=== PATIENT | female | born 1975 | race Caucasian/White ===

== ENCOUNTER 2023-12-12 21:26 | Emergency (ER) | payer OTHER, SELFPAY ==
[2023-12-12 21:39] VITALS: BP 140/101; PULSE 74; RESP 16; TEMP 36.9; O2SAT 96; BMI 33.5
--- NOTE | 2023-12-12 22:20 | CRLHL7_ITS ---
For Patients: As a result of the Century Cures Act, medical imaging exams and procedure reports are released immediately into your electronic medical record. You may view this report before your referring provider. If you have questions, please contact your health care provider. INDICATION: Left neck swelling. TECHNIQUE: CT soft tissue of the neck was acquired with 100 cc Isovue 370 IV contrast. COMPARISON: None. FINDINGS: Skull base: Moderate mucosal thickening of the maxillary sinuses. Central areas of hyperattenuation, nonspecific but may be seen the setting of fungal colonization. Pharynx/Larynx/Trachea: Epiglottis is normal. Airway is patent. Adjacent soft tissues are normal. Salivary glands: Unremarkable. Thyroid gland: Unremarkable. No significant nodules. Lymph nodes: Enlarged bilateral level 1B and 2 lymph nodes. Vessels: Unremarkable for age. Bones: Unremarkable for age. Misc: Focal subcutaneous soft tissue swelling of the left face. No mass or fluid collection. IMPRESSION: 1. Focal subcutaneous soft tissue swelling of the left face, nonspecific correlate for cellulitis. 2. Enlarged bilateral level 1B and 2 lymph nodes, nonspecific possibly reactive. Metastatic disease or lymphoproliferative disorder not excluded. 3. Moderate maxillary sinus mucosal thickening with suggestion of fungal colonization. Please note that all CT scans at this facility use dose modulation, iterative reconstruction, and/or weight-based dosing when appropriate to reduce radiation dose to as low as reasonably achievable. Dictated by Bryce Desai MD @ 12/13/2023 1:50:33 AM (Electronically Signed)
[2023-12-12 22:35] LABS: Basophils Absolute Auto 0.01 K/uL (0.00-0.30); Basophils Percent Auto 0.1 % (0.0-3.0); Eosinophils Absolute Auto 0.21 K/uL (0.00-0.50); Eosinophils Percent Auto 3.1 % (0.0-7.0); Hemoglobin* 14.3 gm/dL (12.0-16.0); Immature Granulocytes Abs Auto 0.01 K/uL (0.00-0.30); Immature Granulocytes Pct Auto 0.1 %; Lymphocytes Percent Auto 52.5 % (20-44); Mean Corpuscular HGB Conc 34 gm/dL (32-36); Mean Corpuscular Hemoglobin 29 pg (26-34); Mean Corpuscular Volume 86 fL (80-100); Monocytes Percent Auto 6.6 % (0.0-11.0); Neutrophils Percent Auto 37.6 % (42.0-72.0); Platelet Count* 458 K/uL (140-440); RDW Coefficient of Variation % 12.5 % (11.5-15.5); Red Blood Count 4.91 m/uL (4.00-5.20); White Blood Count* 6.87 K/uL (4.50-11.00)
[2023-12-12] MEDS: 0.9 % SODIUM CHLORIDE 1000 ml 1,000 ML IV (22:37)
[2023-12-12 22:44] LABS: Slide Review Reflex No
[2023-12-12 22:55] LABS: C Reactive Protein* 0.8 mg/dL (0.5-1.0)
--- NOTE | 2023-12-12 23:35 | ED.SKABFB ---
HPI - Skin/Abscess/Foreign Bdy General Date Seen: 12/12/23 <Alin Loya MD - Last Filed: 12/12/23 23:39> Chief complaint: Sore Throat <Alin Loya MD - Last Filed: 12/12/23 23:39> Stated complaint: pain in lymph nodes, swelling <Alin Loya MD - Last Filed: 12/12/23 23:39> Time Seen by Provider: 12/12/23 21:35 <Alin Loya MD - Last Filed: 12/12/23 23:39> Source: patient <Alin Loya MD - Last Filed: 12/12/23 23:39> Mode of arrival: ambulatory <Alin Loya MD - Last Filed: 12/12/23 23:39> Limitations: no limitations <Ailn Loya MD - Last Filed: 12/12/23 23:39> History of Present Illness HPI narrative: seen yesterday at [facility] urgent care and dx with strep and flu b, started on Augmentin which she has taken before in the past. today noticed swelling in her lymph node area and painful swallowing. patient denies airway compromise but is concerned about the amount of swelling in her lymph nodes. She presents with left-sided facial swelling that is worsening. No fevers no chills she was started on the Augmentin, tested positive for both strep and influenza B. Has some concerns over the fact that she has had strep now 3 times in the last few months was able to eat today although she says the is a little bit sore to swallow. Taking some Tylenol and some ibuprofen. History of petite mal seizures, reflux, anxiety, <Alin Loya MD - Last Filed: 12/12/23 23:39> Treatments prior to arrival: none <Alin Loya MD - Last Filed: 12/12/23 23:39> Related Data Home medications: Home Medications ?Medication ?Instructions ?Recorded ?Confirmed lamotrigine .ROUTE 12/12/23 omeprazole 20 mg capsule,delayed 20 mg PO DAILY 12/12/23 12/12/23 release paroxetine HCl PO 12/12/23 propranolol .ROUTE 12/12/23 Previous Rx's ?Medication ?Instructions ?Recorded amoxicillin 875 mg-potassium 1 tab PO BID #10 tabs 12/13/23 clavulanate 125 mg tablet <Alin Loya MD - Last Filed: 12/12/23 23:39> Allergies/Adverse reactions: Allergies Allergy/AdvReac Type Severity Reaction Status Date / Time morphine Allergy Verified 12/12/23 21:46 <Alin Loya MD - Last Filed: 12/12/23 23:39> Review of Systems Status of ROS: Reports: 10 or more systems reviewed and unremarkable except as noted in History and below <Alin Loya MD - Last Filed: 12/12/23 23:39> PFSH PFSH Social History: Social History Non-prescribed substance use: denies use <Alin Loya MD - Last Filed: 12/12/23 23:39> Exam Narrative: Exam Narrative: Patient is in no apparent distress she has a normal voice speaking to me normally she clearly has left-sided swelling of her face, appears to be more of the parotid gland than anything. There is a little bit of reactive lymphadenopathy on the left side the floor of her mouth is quiet, do not detect any evidence of a ranula or tooth abscess. Or oropharynx is otherwise looks good, I do not see any sign peritonsillar abscess or asymmetry noted. TMs are normal bilaterally her neck is supple her chest is good air entry bilaterally heart sounds are normal. <Alin Loya MD - Last Filed: 12/12/23 23:39> Const: Vital Signs, click to edit/add: Vital Signs - 24 hr 12/12/23 21:39 12/13/23 01:00 12/13/23 01:10 Temperature 98.4 F 98.0 F Pulse Rate [Pulse Oximeter] 74 75 Respiratory Rate 16 16 Blood Pressure [Ri ght Upper Arm] 140/101 H 135/78 Pulse Oximetry 96 98 Oxygen Delivery Mn thod Room Air Room Air <Alin Loya MD - Last Filed: 12/12/23 23:39> Vital Signs, click to edit/add: Vital Signs - 24 hr 12/12/23 21:39 12/13/23 01:00 12/13/23 01:10 Temperature 98.4 F 98.0 F Pulse Rate [Pulse Oximeter] 74 75 Respiratory Rate 16 16 Blood Pressure [Ri t Upper Arm] 140/101 H 135/78 Pulse Oximetry 96 98 Oxygen Delivery Me thod Room Air Room Air <Rafy Byrne MD - Last Filed: 12/13/23 01:25> Documenting provider has reviewed patient's vital signs: yes <Alin Loya MD - Last Filed: 12/12/23 23:39> Course Reevaluation(s) Time of Reevaluation #1: 01:23 <Rafy Byrne MD - Last Filed: 12/13/23 01:25> Reevaluation #1: Patient is requesting discharge. I personally reviewed the CT scan of the neck which does not demonstrate prominent asymmetry, or airway compromise. Mild tonsillar asymmetry with slight prominence on the left, no fluid collection seen. If there is an abscess that is subcentimeter and likely not candidate for drainage. Patient will be started on prednisone and should continue her antibiotics. <Rafy Byrne MD - Last Filed: 12/13/23 01:25> Vital Signs Vital signs: Initial Vital Signs Temperature 98.4 F 12/12/23 21:39 Temperature Source Temporal Artery Scan 12/12/23 21:39 Pulse Rate 74 12/12/23 21:39 Respiratory Rate 16 12/12/23 21:39 Blood Pressure 140/101 H 12/12/23 21:39 Blood Pressure Mean 114 H 12/12/23 21:39 Blood Pressure Position Sitting 12/12/23 21:39 Pulse Oximetry 96 12/12/23 21:39 Oxygen Delivery Method Room Air 12/12/23 21:39 Vital Signs Temperature 98.4 F 12/12/23 21:39 Pulse Rate 74 12/12/23 21:39 Respiratory Rate 16 12/12/23 21:39 Blood Pressure 140/101 H 12/12/23 21:39 Pulse Oximetry 96 12/12/23 21:39 Oxygen Delivery Method Room Air 12/12/23 21:39 Temperature 98.0 F 12/13/23 01:10 Pulse Rate 75 12/13/23 01:00 Respiratory Rate 16 12/13/23 01:00 Blood Pressure 135/78 12/13/23 01:00 Pulse Oximetry 98 12/13/23 01:00 Oxygen Delivery Method Room Air 12/13/23 01:00 <Alin Loya MD - Last Filed: 12/12/23 23:39> Initial Vital Signs Temperature 98.4 F 12/12/23 21:39 Temperature Source Temporal Artery Scan 12/12/23 21:39 Pulse Rate 74 12/12/23 21:39 Respiratory Rate 16 12/12/23 21:39 Blood Pressure 140/101 H 12/12/23 21:39 Blood Pressure Mean 114 H 12/12/23 21:39 Blood Pressure Position Sitting 12/12/23 21:39 Pulse Oximetry 96 12/12/23 21:39 Oxygen Delivery Method Room Air 12/12/23 21:39 Vital Signs Temperature 98.4 F 12/12/23 21:39 Pulse Rate 74 12/12/23 21:39 Respiratory Rate 16 12/12/23 21:39 Blood Pressure 140/101 H 12/12/23 21:39 Pulse Oximetry 96 12/12/23 21:39 Oxygen Delivery Method Room Air 12/12/23 21:39 Temperature 98.0 F 12/13/23 01:10 Pulse Rate 75 12/13/23 01:00 Respiratory Rate 16 12/13/23 01:00 Blood Pressure 135/78 12/13/23 01:00 Pulse Oximetry 98 12/13/23 01:00 Oxygen Delivery Method Room Air 12/13/23 01:00 <Rafy Byrne MD - Last Filed: 12/13/23 01:25> Medications Administered Medications: Discontinued Medications Generic Name Dose Route Start Last Admin Trade Name Freq PRN Reason Stop Dose Admin Sodium Chloride 1,000 mls @ 1,000 mls/hr 12/12/23 22:30 12/13/23 01:06 0.9 % Sodium Chloride 1000 Ml IV 12/12/23 23:29 Infused .Q1H ANIA Infusion <Alin Loya MD - Last Filed: 12/12/23 23:39> Discontinued Medications Generic Name Dose Route Start Last Admin Trade Name Freq PRN Reason Stop Dose Admin Sodium Chloride 1,000 mls @ 1,000 mls/hr 12/12/23 22:30 12/13/23 01:06 0.9 % Sodium Chloride 1000 Ml IV 12/12/23 23:29 Infused .Q1H ANIA Infusion <Rafy Byrne MD - Last Filed: 12/13/23 01:25> MDM - Skin/Abscess/Foreign Bdy MDM Narrative Medical decision making narrative: I do think this is most likely due parotid but she does have the swelling. I think it would be reasonable to a CT, along with blood test. If this all comes back normal I think she can go home and continue with her Augmentin. I would suggest follow-up with her primary care physician for her concerns of the repeated strep. <Alin Loya MD - Last Filed: 12/12/23 23:39> Medical Records Attestation: I reviewed the patient's medical records. <Alin Loya MD - Last Filed: 12/12/23 23:39> Lab Data Attestation: I reviewed the patient's lab results. <Alin Loya MD - Last Filed: 12/12/23 23:39> Labs: Lab Results 12/12/23 Range/Units 22:27 WBC 6.87 (4.50-11.00) K/uL RBC 4.91 (4.00-5.20) m/uL Hgb 14.3 (12.0-16.0) gm/dL Hct 42.0 (33.0-51.0) % MCV 86 (80-100) fL MCH 29 (26-34) pg MCHC 34 (32-36) gm/dL RDW Coeff of Alejandro 12.5 (11.5-15.5) % Plt Count 458 H (140-440) K/uL Neut % (Auto) 37.6 L (42.0-72.0) % Lymph % (Auto) 52.5 H (20-44) % Forrest % (Auto) 6.6 (0.0-11.0) % Eos % (Auto) 3.1 (0.0-7.0) % Baso % (Auto) 0.1 (0.0-3.0) % Neut # (Auto) 2.60 (1.7-7.0) K/uL Lymph # (Auto) 3.60 H (0.90-2.90) K/uL Forrest # (Auto) 0.50 (0.00-0.90) K/UL Eos # (Auto) 0.21 (0.00-0.50) K/uL Baso # (Auto) 0.01 (0.00-0.30) K/uL Abs Immat Gran (auto) 0.01 (0.00-0.30) K/uL Imm/Tot Granulo (auto) 0.1 % C-Reactive Protein 0.8 (0.5-1.0) mg/dL <Alin Loya MD - Last Filed: 12/12/23 23:39> Lab Results 12/12/23 Range/Units 22:27 WBC 6.87 (4.50-11.00) K/uL RBC 4.91 (4.00-5.20) m/uL Hgb 14.3 (12.0-16.0) gm/dL Hct 42.0 (33.0-51.0) % MCV 86 (80-100) fL MCH 29 (26-34) pg MCHC 34 (32-36) gm/dL RDW Coeff of Alejandro 12.5 (11.5-15.5) % Plt Count 458 H (140-440) K/uL Neut % (Auto) 37.6 L (42.0-72.0) % Lymph % (Auto) 52.5 H (20-44) % Forrest % (Auto) 6.6 (0.0-11.0) % Eos % (Auto) 3.1 (0.0-7.0) % Baso % (Auto) 0.1 (0.0-3.0) % Neut # (Auto) 2.60 (1.7-7.0) K/uL Lymph # (Auto) 3.60 H (0.90-2.90) K/uL Forrest # (Auto) 0.50 (0.00-0.90) K/UL Eos # (Auto) 0.21 (0.00-0.50) K/uL Baso # (Auto) 0.01 (0.00-0.30) K/uL Abs Immat Gran (auto) 0.01 (0.00-0.30) K/uL Imm/Tot Granulo (auto) 0.1 % C-Reactive Protein 0.8 (0.5-1.0) mg/dL <Rafy Byrne MD - Last Filed: 12/13/23 01:25> Discharge Plan Discharge Clinical Impression: Acute streptococcal pharyngitis, Lymphadenopathy of left cervical region <Alin Loya MD - Last Filed: 12/12/23 23:39> Patient Disposition: Home, Self-Care <Alin Loya MD - Last Filed: 12/12/23 23:39> Condition: Stable <Alin Loya MD - Last Filed: 12/12/23 23:39> Instructions: Pharyngitis (ED), Strep Throat (DC), Lymphadenopathy (ED) <Alin Loya MD - Last Filed: 12/12/23 23:39> Additional Instructions: As I discussed with you I think this is all reactive to your group B strep. We will wait on the CT read, my partner will review this and if there is anything other than what we discussed, he will come in tell you I do think he should be on your Augmentin for a full 10 days. I will give the 5 more days of this continue with the Tylenol ibuprofen, return here if problems swallowing or you feel your throat is closing up but rate now I think you have a very patent throat. <Alin Loya MD - Last Filed: 12/12/23 23:39> Activity Level: Light activity <Alin Loya MD - Last Filed: 12/12/23 23:39> Light activity <Rafy Byrne MD - Last Filed: 12/13/23 01:25> Prescriptions: New amoxicillin-pot clavulanate 875-125 mg tablet 1 tab PO BID Qty: 10 0RF No Action propranolol .ROUTE paroxetine HCl [Paxil] PO omeprazole 20 mg capsule,delayed release(DR/EC) 20 mg PO DAILY lamotrigine [Lamictal ODT] .ROUTE <Alin Loya MD - Last Filed: 12/12/23 23:39> Follow Up/Referrals: Provider,Not a Local [Primary Care Provider] - <Alin Loya MD - Last Filed: 12/12/23 23:39> Stand Alone Forms: My[facility] Info Instructions <Alin Loya MD - Last Filed: 12/12/23 23:39>
[2023-12-13 01:00] VITALS: BP 135/78; PULSE 75; RESP 16; O2SAT 98
[2023-12-13 01:10] VITALS: TEMP 36.7
--- NOTE | 2023-12-13 01:23 | PC.NURSE ---
Verbal/phone consent from father, Sky to treat patient. Sky's phone number #
[2023-12-13] MEDS: predniSONE 20 MG TABLET 40 MG PO (01:35)
--- NOTE | 2023-12-14 14:51 | W.ED.CHARTNO ---
ED Chart Note Chart Note Details Date: 12/14/23 Details: I attempted to call the patient today, left a message on her phone to call back. To see how she is doing, and also to tell her that her CT read showed that there is a question of fungal infection in her sinuses bilaterally. She should follow-up with ear nose and throat, we can set her up to see . This is a known problem she is already seeing someone then we do not have to worry about this. This is not an acute problem of more of a chronic nature.
== END 2023-12-13 01:36 | disposition home or self-care (01) ==
PROVIDERS: Emergency Provider Family Medicine
DX: J02.0 Streptococcal pharyngitis (principal); R59.0 Localized enlarged lymph nodes
CPT/HCPCS: 36415; 70491; 85025; 86140; 99283; 99284; J7030; J7512; Q9967